=== PATIENT | male | born 1940 | race Caucasian/White ===

== ENCOUNTER 2020-07-11 11:33 | Inpatient (IN) | payer MEDICARE, OTHER ==
[~2020-07-11] VITALS: Ht 167.6 cm; Wt 81.6 kg
--- NOTE | 2020-07-11 12:00 | NUR ---
GPS/ADDICTION PROFESSIONAL NOTES ADMITTED A 80 YEARS OLD MALE PATIENT FROM [facility]. PATIENT ON 5150 HOLD FOR DTS. UPON FACE TO FACE INTERVIEW PATIENT A/O X4 VERBALIZED THAT HE IS DEPRESS WITH SUICIDAL THOUGHTS BUT NO PLAN AT THIS TIME. PATIENT CALM AND COOPERATIVE DURING THE ADMISSION PROCESS. DR. HULL ( PSYCHIATRIST)AND DR. ABDI (WHOLESALE LOAN PROCESSOR WILL RECONCILE PATIENT'S MEDICATIONS) MADE AWARE OF THE ADMISSION. DR. ABDI MADE AWARE OF THE INITIAL BS RESULTS OF 205 MG/DL AFTER PATIENT ATE HIS LUNCH AND DRINKS ORANGE JUICE AND STATED IT IS FINE WILL DO AIC TOMORROW. PATIENT WAS ORIENTED IN THE UNIT AND UNIT POLICIES. CONTRABAND AND FULL SKIN ASSESSMENT DONE. ADVISEMENT AND PATIENT' RIGHT BOOKLET WAS GIVEN TO THE PATIENT. PATIENT'S TINY WAS MADE AWARE OF THE ADMISSION.
[2020-07-11] MEDS ORDERED: MIRT45TA83 PO (12:13)
[2020-07-11] MEDS ORDERED: DOCU-141 PO (12:13)
[2020-07-11] MEDS ORDERED: ARIP15TA3 PO (12:13)
[2020-07-11] MEDS ORDERED: SENN-261 PO (12:13)
[2020-07-11] MEDS ORDERED: LISI-607 PO (12:13)
[2020-07-11] MEDS ORDERED: PANT20TA2 PO (12:13)
[2020-07-11] MEDS ORDERED: MULT-24 PO (12:13)
[2020-07-11] MEDS ORDERED: BUPR-51 PO (12:13)
[2020-07-11] MEDS ORDERED: OLAN10TA3 PO (12:13)
[2020-07-11] MEDS ORDERED: HYDR25TA4 PO (12:13)
[2020-07-11] MEDS ORDERED: MAG30ORA PO (12:13)
[2020-07-11] MEDS ORDERED: AMLO10TA4 PO (12:13)
[2020-07-11] MEDS ORDERED: VENL150T PO (12:13)
[2020-07-11] MEDS ORDERED: POLY17PO4 PO (12:13)
[2020-07-11] MEDS ORDERED: TAMS-12 PO (12:13)
[2020-07-11] MEDS ORDERED: CHOL100040 PO (12:13)
[2020-07-11] MEDS ORDERED: GABA-532 PO (12:13)
[2020-07-11] MEDS ORDERED: BLOOD SUGAR DIAGNOSTIC 1 EACH STRIP IN ONE (12:30)
[2020-07-11] MEDS ORDERED: MAG HYDROX/AL HYDROX/SIMETH 30 ML UDC PO PRN ×2 (12:30→21:00)
[2020-07-11] MEDS ORDERED: MAGNESIUM HYDROXIDE 30 ML UDC PO PRN (12:30)
[2020-07-11] MEDS ORDERED: ACETAMINOPHEN 325 MG TABLET PO PRN (12:30)
[2020-07-11] MEDS ORDERED: LORAZEPAM 0.5 MG TABLET PO PRN (12:30)
--- NOTE | 2020-07-11 13:41 | NUR ---
GPS/RN-NOTES PATIENT C/O INDIGESTION AND REQUESTING FO MEDICATIONS TO HELP. MAALOX 30ML GIVEN PRN ORDER. WILL CONT. MONITORING.
--- NOTE | 2020-07-11 14:00 | NUR ---
GPS/RN -NOTES PATIENT VERBALIZED MAALOX HELPS WITH THE HIS INDIGESTIONS.
[2020-07-11 16:00] VITALS: BP 137/61
[2020-07-11 20:15] VITALS: BP 154/87
[2020-07-11] MEDS ORDERED: GABAPENTIN 300 MG CAPSULE PO PRN (21:00)
[2020-07-12 07:47] LABS: ALBUMIN 3.1 g/dL (3.4-5.0); BILIRUBIN,TOTAL 0.3 mg/dL (0.2-1.0); CALCIUM, SERUM 8.6 mg/dL (8.5-10.1); POTASSIUM 3.2 mmol/L (3.5-5.1); TOTAL PROTEIN, SERUM 6.8 g/dL (6.4-8.2)
[2020-07-12 07:57] LABS: THYROID STIMULATING HORMONE 4.039 uIU/mL (0.358-3.74)
[2020-07-12 08:00] VITALS: BP 153/75
[2020-07-12] MEDS: PANTOPRAZOLE 40 MG TABLET.DR PO SCH (08:21)
[2020-07-12] MEDS: HYDROCHLOROTHIAZIDE 25 MG TABLET PO SCH (08:22)
[2020-07-12] MEDS: TAMSULOSIN 0.4 MG CAP.SR.24H PO SCH (08:22)
[2020-07-12] MEDS: CHOLECALCIFEROL 1,000 UNIT TABLET (VIT D3) PO SCH (08:22)
[2020-07-12] MEDS: MULTIVITAMINS,THERAGRAN 1 UDTAB TABLET PO SCH (08:22)
[2020-07-12] MEDS: DOCUSATE SODIUM 100 MG CAPSULE PO SCH ×2 (08:22→17:02)
[2020-07-12] MEDS: LISINOPRIL (5MG) 5 MG TABLET PO SCH (08:23)
[2020-07-12] MEDS: AMLODIPINE BESYLATE 10 MG TABLET PO SCH (08:23)
[2020-07-12] MEDS: POLYETHYLENE GLYCOL 3350 17 GM POWD.PACK PO PRN (08:38)
--- NOTE | 2020-07-12 09:00 | NUR ---
RN NOTE- PT CALM ORIENTED TO PERSON PLACE DENIES SI HI AH VH AT PRESENT MED COMPLIANT ISOLATIVE WITHDRAWN POOR EYE CONTACT DOESN'T INITIATE CONVERSATION. GUARDED
--- NOTE | 2020-07-12 09:11 | NUR ---
RN NOTE- PT REQUESTED MIRALAX FOR BM. TAKES DAILY. GIVEN. ALSO NOTED K IS 3.2. KEYLA LOCKE NOTIFIED AT THIS TIME
--- NOTE | 2020-07-12 09:30 | NUR ---
RN NOTE- K SUPPLEMENTATION STARTED PER KEYLA LOCKE
[2020-07-12] MEDS: POTASSIUM CHLORIDE 20 MEQ TAB.PRT.SR PO SCH ×2 (09:38→10:43)
--- NOTE | 2020-07-12 12:10 | NUR ---
Family Contact: SW called the pts , Leila ([phone]), and informed her that the SW would like to discuss the pts discharge planning. Pts stated that she would like the pt to return home and SW stated that they would need to figure out how to get his medications. She stated that she will figure it out.
[2020-07-12] MEDS: OLANZAPINE 2.5 MG TABLET PO SCH ×2 (13:51→17:02)
--- NOTE | 2020-07-12 14:33 | NUR ---
Psychiatrist Contact: CEDRIC called Dr. Phil Mercado located at [address], [place] [address]; and left a voicemail message stating that she would like to talk to the MD regarding the pt.
--- NOTE | 2020-07-12 14:48 | NUR ---
Initial Discharge Plan: Pt currently resides at his home with his located at [address] [id number]; ([phone]). Per pt, he would like to return to his home. SW will work with the pt and the MD regarding appropriate discharge planning. SW will form a safe and proper discharge.
[2020-07-12] MEDS ORDERED: DEXTROSE 50%-WATER 50 ML DISP.SYRIN IV PRN (15:30)
[2020-07-12] MEDS ORDERED: POTASSIUM CHLORIDE 20 MEQ TAB.PRT.SR PO ONE ×2 (15:30→18:30)
[2020-07-12 16:00] VITALS: BP 123/64
[2020-07-12] MEDS: BLOOD SUGAR DIAGNOSTIC 1 EACH STRIP IN SCH ×2 (17:35→21:31)
[2020-07-12] MEDS: INSULIN REGULAR, HUMAN 100 UNIT/ML 3 ML VIAL SQ PRN ×2 (17:43→21:33)
[2020-07-12 20:05] VITALS: BP 128/69
[2020-07-12] MEDS ORDERED: OLANZAPINE 2.5 MG TABLET PO SCH (22:00)
[2020-07-13 07:39] LABS: BASOPHILS % (AUTO) 0.4 % (0.0-2.0); EOSINOPHILS % (AUTO) 4.1 % (0.0-6.0); HEMATOCRIT 45 % (39-51); HEMOGLOBIN 14.7 g/dL (13.5-17.5); LYMPHOCYTES # (AUTO) 2.2 /CMM (0.8-4.8); LYMPHOCYTES % (AUTO) 25.5 % (20.0-44.0); MEAN CORPUSCULAR HGB CONC 33 g/dl (31.0-36.0); MEAN CORPUSCULAR VOLUME 92 fL (80-96); MONOCYTES # (AUTO) 0.8 /CMM (0.1-1.30); MONOCYTES % (AUTO) 9.2 % (2.0-12.0); NEUTROPHILS # (AUTO) 5.2 /CMM (1.8-8.9); NEUTROPHILS % (AUTO) 60.8 % (43.0-81.0); PLATELET COUNT (AUTO) 195 /CMM (150-450); RED BLOOD CELL COUNT(AUTO) 4.81 MIL/uL (4.5-6.0); WHITE BLOOD COUNT (AUTO) 8.5 K/uL (4.3-11.0)
[2020-07-13] MEDS: BLOOD SUGAR DIAGNOSTIC 1 EACH STRIP IN SCH ×4 (07:52→21:24)
[2020-07-13 08:00] VITALS: BP 130/66
[2020-07-13] MEDS: PANTOPRAZOLE 40 MG TABLET.DR PO SCH (08:07)
[2020-07-13] MEDS: SENNOSIDES 8.6 MG TABLET PO PRN (08:10)
[2020-07-13] MEDS: INSULIN REGULAR, HUMAN 100 UNIT/ML 3 ML VIAL SQ PRN ×4 (08:10→21:27)
[2020-07-13] MEDS: MULTIVITAMINS,THERAGRAN 1 UDTAB TABLET PO SCH (08:10)
[2020-07-13] MEDS: CHOLECALCIFEROL 1,000 UNIT TABLET (VIT D3) PO SCH (08:11)
[2020-07-13] MEDS: DOCUSATE SODIUM 100 MG CAPSULE PO SCH ×2 (08:11→16:34)
[2020-07-13] MEDS: OLANZAPINE 2.5 MG TABLET PO SCH ×2 (08:11→12:35)
[2020-07-13] MEDS: HYDROCHLOROTHIAZIDE 25 MG TABLET PO SCH (08:12)
[2020-07-13] MEDS: LISINOPRIL (5MG) 5 MG TABLET PO SCH (08:13)
[2020-07-13] MEDS: TAMSULOSIN 0.4 MG CAP.SR.24H PO SCH (08:15)
[2020-07-13] MEDS: AMLODIPINE BESYLATE 10 MG TABLET PO SCH (08:16)
[2020-07-13 08:25] LABS: CALCIUM, SERUM 8.7 mg/dL (8.5-10.1); CREATININE 0.8 mg/dL (0.6-1.3); MAGNESIUM 2.3 mg/dL (1.8-2.4); PHOSPHORUS 3.1 mg/dL (2.5-4.9)
[2020-07-13 16:00] VITALS: BP 92/65
[2020-07-13] MEDS: ARIPIPRAZOLE 5 MG TABLET PO SCH (16:34)
[2020-07-13 20:00] VITALS: BP 117/53
[2020-07-14 08:00] VITALS: BP 151/88
[2020-07-14] MEDS: BLOOD SUGAR DIAGNOSTIC 1 EACH STRIP IN SCH ×4 (08:01→21:11)
[2020-07-14] MEDS: INSULIN REGULAR, HUMAN 100 UNIT/ML 3 ML VIAL SQ PRN ×4 (08:02→21:14)
[2020-07-14] MEDS: ARIPIPRAZOLE 5 MG TABLET PO SCH ×3 (08:02→17:04)
[2020-07-14] MEDS: DOCUSATE SODIUM 100 MG CAPSULE PO SCH ×2 (08:02→17:04)
[2020-07-14] MEDS: MULTIVITAMINS,THERAGRAN 1 UDTAB TABLET PO SCH (08:03)
[2020-07-14] MEDS: AMLODIPINE BESYLATE 10 MG TABLET PO SCH (08:03)
[2020-07-14] MEDS: CHOLECALCIFEROL 1,000 UNIT TABLET (VIT D3) PO SCH (08:03)
[2020-07-14] MEDS: SENNOSIDES 8.6 MG TABLET PO PRN (08:03)
[2020-07-14] MEDS: HYDROCHLOROTHIAZIDE 25 MG TABLET PO SCH (08:03)
[2020-07-14] MEDS: PANTOPRAZOLE 40 MG TABLET.DR PO SCH (08:03)
[2020-07-14] MEDS: LISINOPRIL (5MG) 5 MG TABLET PO SCH (08:04)
[2020-07-14] MEDS: DIVALPROEX SODIUM 125 MG CAP.SPRINK PO SCH ×3 (08:06→17:04)
[2020-07-14] MEDS: TAMSULOSIN 0.4 MG CAP.SR.24H PO SCH (08:06)
[2020-07-14 16:00] VITALS: BP 120/70
[2020-07-14] MEDS: METFORMIN 500 MG TABLET PO SCH (17:04)
[2020-07-14 19:39] VITALS: BP 139/70
[2020-07-14] MEDS: TEMAZEPAM 7.5 MG CAPSULE PO PRN (22:01)
--- NOTE | 2020-07-14 22:17 | NUR ---
GPS RN NOTES: INSOMNIA PT INALBLE TO SLEEP. PT REQUESTED SLEEPING MEDICATION. OFFERED RESTORIL 7.5 MG PO PRN ORDERED. PT AGREED AND TOLERATED MEDICATION WELL. CONTINUE TO MONITOR.
[2020-07-15] MEDS: BLOOD SUGAR DIAGNOSTIC 1 EACH STRIP IN SCH ×4 (06:58→21:07)
[2020-07-15] MEDS: INSULIN REGULAR, HUMAN 100 UNIT/ML 3 ML VIAL SQ PRN ×3 (07:00→21:09)
[2020-07-15 08:00] VITALS: BP 142/69
[2020-07-15] MEDS: TAMSULOSIN 0.4 MG CAP.SR.24H PO SCH (08:15)
[2020-07-15] MEDS: HYDROCHLOROTHIAZIDE 25 MG TABLET PO SCH (08:15)
[2020-07-15] MEDS: DIVALPROEX SODIUM 125 MG CAP.SPRINK PO SCH ×3 (08:15→16:18)
[2020-07-15] MEDS: ARIPIPRAZOLE 5 MG TABLET PO SCH ×3 (08:15→21:00)
[2020-07-15] MEDS: PANTOPRAZOLE 40 MG TABLET.DR PO SCH (08:16)
[2020-07-15] MEDS: METFORMIN 500 MG TABLET PO SCH ×2 (08:16→16:18)
[2020-07-15] MEDS: CHOLECALCIFEROL 1,000 UNIT TABLET (VIT D3) PO SCH (08:16)
[2020-07-15] MEDS: LISINOPRIL (5MG) 5 MG TABLET PO SCH (08:16)
[2020-07-15] MEDS: DOCUSATE SODIUM 100 MG CAPSULE PO SCH ×2 (08:16→16:18)
[2020-07-15] MEDS: AMLODIPINE BESYLATE 10 MG TABLET PO SCH (08:17)
[2020-07-15] MEDS: MULTIVITAMINS,THERAGRAN 1 UDTAB TABLET PO SCH (08:22)
--- NOTE | 2020-07-15 09:00 | NUR ---
RN NOTE-PT QUIET WITHDRAWN ORIENTED TO PERSON PLACE TIME PURPOSE DENIES ALL MED COMPLIANT PO INTAKE GOOD DEPRESSED
--- NOTE | 2020-07-15 14:33 | NUR ---
SW Discharge Plan: This copywriter spoke with Libby from [facility] ([phone]) and sent clinicals. Libby, stated that they will accept pt.
--- NOTE | 2020-07-15 14:34 | NUR ---
SW Family Contact: This technical proposal writer spoke with patient's Leila ([phone]) who is aware of pt's discharge to [facility] once pt is stable. She is agreeable with this plan.
[2020-07-15 16:00] VITALS: BP 142/84
[2020-07-15] MEDS: POLYETHYLENE GLYCOL 3350 17 GM POWD.PACK PO PRN (16:18)
--- NOTE | 2020-07-15 17:28 | NUR ---
GPS RN NOTES PATIENT'S 1730 ACCU-CHECK WITH BS OF 124. PER SLIDING SCALE NO COVERAGE NEEDED.
--- NOTE | 2020-07-15 19:35 | NUR ---
GPS RN NOTES PATIENT IN THE ROOM, AWAKE, EATING A SNACK. PATIENT IS CALM AT THIS TIME; NO S/S OF DISTRESS NOTED. WILL CONTINUE TO MONITOR FOR SAFETY BEHAVIOR.
[2020-07-15 19:48] VITALS: BP 111/70
[2020-07-16] MEDS: TEMAZEPAM 7.5 MG CAPSULE PO PRN (02:02)
--- NOTE | 2020-07-16 02:03 | NUR ---
GPS RN NOTES: INSOMNIA UPON DOING ROUNDS, PT AWAKE. PT STATED HE CAN NOT SLEEP AND REQUEST SLEEPING MEDICATION. OFFERED RESTORIL 7.5MG PO PRN ORDERED. PT AGREED AND TOLERATED MEDICATION WELL. CONTINUE TO MONITOR
[2020-07-16] MEDS: BLOOD SUGAR DIAGNOSTIC 1 EACH STRIP IN SCH ×4 (07:38→21:28)
[2020-07-16] MEDS: INSULIN REGULAR, HUMAN 100 UNIT/ML 3 ML VIAL SQ PRN ×3 (07:41→17:27)
[2020-07-16 08:00] VITALS: BP 121/57
[2020-07-16] MEDS: DOCUSATE SODIUM 100 MG CAPSULE PO SCH ×2 (08:22→17:30)
[2020-07-16] MEDS: CHOLECALCIFEROL 1,000 UNIT TABLET (VIT D3) PO SCH (08:22)
[2020-07-16] MEDS: METFORMIN 500 MG TABLET PO SCH ×2 (08:22→17:30)
[2020-07-16] MEDS: ARIPIPRAZOLE 5 MG TABLET PO SCH ×3 (08:22→21:26)
[2020-07-16] MEDS: TAMSULOSIN 0.4 MG CAP.SR.24H PO SCH (08:22)
[2020-07-16] MEDS: DIVALPROEX SODIUM 125 MG CAP.SPRINK PO SCH ×3 (08:22→17:30)
[2020-07-16] MEDS: HYDROCHLOROTHIAZIDE 25 MG TABLET PO SCH (08:23)
[2020-07-16] MEDS: LISINOPRIL (5MG) 5 MG TABLET PO SCH (08:23)
[2020-07-16] MEDS: PANTOPRAZOLE 40 MG TABLET.DR PO SCH (08:23)
[2020-07-16] MEDS: AMLODIPINE BESYLATE 10 MG TABLET PO SCH (08:23)
[2020-07-16] MEDS: MULTIVITAMINS,THERAGRAN 1 UDTAB TABLET PO SCH (08:27)
[2020-07-16] MEDS ORDERED: TIOT18CA3 IH (09:15)
[2020-07-16] MEDS ORDERED: TIOTROPIUM BROMIDE 6 CAP/BOX CAP.W.DEV IH SCH (10:30)
[2020-07-16] MEDS: IPRATROPIUM NEB FS 0.5 MG/2.5 ML AMPUL.NEB NEB SCH ×2 (10:45→19:57)
[2020-07-16] MEDS ORDERED: IPRATROPIUM NEB FS 0.5 MG/2.5 ML AMPUL.NEB ONE (10:45)
[2020-07-16 16:00] VITALS: BP 156/78
[2020-07-16 19:53] VITALS: BP 141/76
[2020-07-17] MEDS: IPRATROPIUM NEB FS 0.5 MG/2.5 ML AMPUL.NEB NEB SCH ×6 (01:30→20:32)
[2020-07-17] MEDS: TEMAZEPAM 7.5 MG CAPSULE PO PRN (04:02)
--- NOTE | 2020-07-17 04:04 | NUR ---
GPS RN NOTE: INSOMNIA PT COMPLAINED OF INSOMNIA AND REQUESTED SLEEPING PILL, ADMIN RESTORIL @ 0402, WILL REASSESS AND CONTINUE TO MONITOR Q15MIN FOR SAFETY AND BEHAVIOR.
[2020-07-17] MEDS: BLOOD SUGAR DIAGNOSTIC 1 EACH STRIP IN SCH ×4 (06:43→21:49)
[2020-07-17] MEDS: INSULIN REGULAR, HUMAN 100 UNIT/ML 3 ML VIAL SQ PRN ×4 (06:45→21:51)
[2020-07-17 07:15] LABS: BASOPHILS % (AUTO) 0.2 % (0.0-2.0); EOSINOPHILS % (AUTO) 4.9 % (0.0-6.0); HEMATOCRIT 40 % (39-51); HEMOGLOBIN 13.6 g/dL (13.5-17.5); LYMPHOCYTES % (AUTO) 25.9 % (20.0-44.0); MEAN CORPUSCULAR HGB CONC 34 g/dl (31.0-36.0); MEAN CORPUSCULAR VOLUME 90 fL (80-96); MONOCYTES # (AUTO) 0.8 /CMM (0.1-1.30); MONOCYTES % (AUTO) 10.5 % (2.0-12.0); NEUTROPHILS # (AUTO) 4.5 /CMM (1.8-8.9); NEUTROPHILS % (AUTO) 58.5 % (43.0-81.0); PLATELET COUNT (AUTO) 205 /CMM (150-450); RED BLOOD CELL COUNT(AUTO) 4.48 MIL/uL (4.5-6.0); WHITE BLOOD COUNT (AUTO) 7.7 K/uL (4.3-11.0)
[2020-07-17 07:27] LABS: ALBUMIN 3.2 g/dL (3.4-5.0); BILIRUBIN,TOTAL 0.5 mg/dL (0.2-1.0); CALCIUM, SERUM 8.9 mg/dL (8.5-10.1); CREATININE 0.9 mg/dL (0.6-1.3); POTASSIUM 3.2 mmol/L (3.5-5.1); TOTAL PROTEIN, SERUM 6.9 g/dL (6.4-8.2)
[2020-07-17 08:00] VITALS: BP 142/79
--- NOTE | 2020-07-17 08:16 | NUR ---
PT REFUSED RESP TX ATT. NO S/S OF SOB NOTED ATT. HR 95 SPO2 96%. WILL CONT TO MONITOR Addendum: 07/17/20 at 0817 by BRADEN LOCK RT Amended: Links added.
[2020-07-17] MEDS: CHOLECALCIFEROL 1,000 UNIT TABLET (VIT D3) PO SCH (08:50)
[2020-07-17] MEDS: DIVALPROEX SODIUM 125 MG CAP.SPRINK PO SCH ×2 (08:50→12:06)
[2020-07-17] MEDS: DOCUSATE SODIUM 100 MG CAPSULE PO SCH ×2 (08:51→17:04)
[2020-07-17] MEDS: PANTOPRAZOLE 40 MG TABLET.DR PO SCH (08:51)
[2020-07-17] MEDS: MULTIVITAMINS,THERAGRAN 1 UDTAB TABLET PO SCH (08:51)
[2020-07-17] MEDS: METFORMIN 500 MG TABLET PO SCH ×2 (08:51→17:04)
[2020-07-17] MEDS: ARIPIPRAZOLE 5 MG TABLET PO SCH ×4 (08:51→21:40)
[2020-07-17] MEDS: TAMSULOSIN 0.4 MG CAP.SR.24H PO SCH (08:51)
[2020-07-17] MEDS: AMLODIPINE BESYLATE 10 MG TABLET PO SCH (08:52)
[2020-07-17] MEDS: HYDROCHLOROTHIAZIDE 25 MG TABLET PO SCH (08:52)
[2020-07-17] MEDS: LISINOPRIL (5MG) 5 MG TABLET PO SCH (08:52)
[2020-07-17] MEDS ORDERED: POTASSIUM CHLORIDE 20 MEQ TAB.PRT.SR PO ONE (13:30)
--- NOTE | 2020-07-17 13:44 | NUR ---
PROBABLE CAUSE HEARING: Patient had probable cause hearing today which was upheld for grave disability.
[2020-07-17 16:00] VITALS: BP 109/77
[2020-07-17 20:03] VITALS: BP 151/59
[2020-07-17] MEDS ORDERED: TEMAZEPAM 7.5 MG CAPSULE PO PRN (22:00)
[2020-07-18] MEDS: IPRATROPIUM NEB FS 0.5 MG/2.5 ML AMPUL.NEB NEB SCH ×4 (02:13→20:02)
[2020-07-18] MEDS: BLOOD SUGAR DIAGNOSTIC 1 EACH STRIP IN SCH ×4 (07:46→21:25)
[2020-07-18 08:00] VITALS: BP 154/74
[2020-07-18] MEDS: DIVALPROEX SODIUM 125 MG CAP.SPRINK PO SCH ×2 (08:24→12:05)
[2020-07-18] MEDS: CHOLECALCIFEROL 1,000 UNIT TABLET (VIT D3) PO SCH (08:24)
[2020-07-18] MEDS: DOCUSATE SODIUM 100 MG CAPSULE PO SCH ×2 (08:24→16:05)
[2020-07-18] MEDS: MULTIVITAMINS,THERAGRAN 1 UDTAB TABLET PO SCH (08:24)
[2020-07-18] MEDS: ARIPIPRAZOLE 5 MG TABLET PO SCH ×4 (08:24→21:11)
[2020-07-18] MEDS: METFORMIN 500 MG TABLET PO SCH ×2 (08:24→16:05)
[2020-07-18] MEDS: TAMSULOSIN 0.4 MG CAP.SR.24H PO SCH (08:24)
[2020-07-18] MEDS: AMLODIPINE BESYLATE 10 MG TABLET PO SCH (08:25)
[2020-07-18] MEDS: HYDROCHLOROTHIAZIDE 25 MG TABLET PO SCH (08:25)
[2020-07-18] MEDS: LISINOPRIL (5MG) 5 MG TABLET PO SCH (08:25)
[2020-07-18] MEDS: PANTOPRAZOLE 40 MG TABLET.DR PO SCH (08:25)
[2020-07-18] MEDS: INSULIN REGULAR, HUMAN 100 UNIT/ML 3 ML VIAL SQ PRN ×4 (09:00→21:12)
[2020-07-18 12:35] LABS: APPEARANCE,URINE SL CLOUDY (CLEAR); BILIRUBIN,URINE NEGATIVE (NEGATIVE); BLOOD, URINE NEGATIVE Ery/uL (NEGATIVE); COLOR,URINE YELLOW (YELLOW); KETONES,URINE TRACE (NEGATIVE); LEUKOCYTE ESTERASE ,URINE TRACE (NEGATIVE); NITRITE, URINE NEGATIVE (NEGATIVE); PH,URINE 6.5 (5.0-8.0); PROTEIN,URINE NEGATIVE (NEGATIVE); UGLUCOSE NEGATIVE (NEGATIVE); UROBILINOGEN,URINE 0.2 EU/dL (0.2)
[2020-07-18 13:01] LABS: BACTERIA,URINE Rare /HPF (None Seen); RBC,URINE 0-2 /HPF (0-2); SQUAMOUS EPITHELIAL CELL,UR Few /HPF (None Seen)
[2020-07-18 16:00] VITALS: BP 105/62
[2020-07-18 20:00] VITALS: BP 131/65
[2020-07-18 20:01] VITALS: BP 131/65
[2020-07-19] MEDS: IPRATROPIUM NEB FS 0.5 MG/2.5 ML AMPUL.NEB NEB SCH ×4 (01:49→19:58)
[2020-07-19] MEDS: BLOOD SUGAR DIAGNOSTIC 1 EACH STRIP IN SCH ×4 (07:43→21:10)
[2020-07-19 08:00] VITALS: BP 136/72
[2020-07-19] MEDS: INSULIN REGULAR, HUMAN 100 UNIT/ML 3 ML VIAL SQ PRN ×3 (08:07→21:19)
[2020-07-19] MEDS: TAMSULOSIN 0.4 MG CAP.SR.24H PO SCH (08:32)
[2020-07-19] MEDS: ARIPIPRAZOLE 5 MG TABLET PO SCH ×4 (08:32→20:17)
[2020-07-19] MEDS: LISINOPRIL (5MG) 5 MG TABLET PO SCH (08:33)
[2020-07-19] MEDS: METFORMIN 500 MG TABLET PO SCH ×2 (08:33→16:56)
[2020-07-19] MEDS: CHOLECALCIFEROL 1,000 UNIT TABLET (VIT D3) PO SCH (08:33)
[2020-07-19] MEDS: DIVALPROEX SODIUM 125 MG CAP.SPRINK PO SCH ×2 (08:33→13:06)
[2020-07-19] MEDS: HYDROCHLOROTHIAZIDE 25 MG TABLET PO SCH (08:33)
[2020-07-19] MEDS: DOCUSATE SODIUM 100 MG CAPSULE PO SCH ×2 (08:33→16:56)
[2020-07-19] MEDS: MULTIVITAMINS,THERAGRAN 1 UDTAB TABLET PO SCH (08:33)
[2020-07-19] MEDS: PANTOPRAZOLE 40 MG TABLET.DR PO SCH (08:33)
[2020-07-19] MEDS: AMLODIPINE BESYLATE 10 MG TABLET PO SCH (08:35)
--- NOTE | 2020-07-19 12:00 | NUR ---
gps plastic shaper: notes covid antigen collected for placement and sent to lab, pt verbalized understanding.
--- NOTE | 2020-07-19 13:11 | NUR ---
SW Family Contact: This lead technical writer spoke with patient's Leila ([phone]) and informed that pt will be discharged Friday 07/20. She is aware and agreeable
--- NOTE | 2020-07-19 13:12 | NUR ---
SW Wednesday Discharge Note (Early Entry): Patient will be discharged to [facility] [address] [place] [address] ([phone]) via ambulance at 11AM. Spoke with Libby, Admin Coordinator at the facility who states they are ready to accept the patient today. Patient is aware and agreeable with discharge plans. Patients Leila ([phone]) is aware and agreeable. Patient is alert and oriented x3, is unable to plan for self-care at this time, however, is willing to accept care at [facility]. Patient denies any suicidal or homicidal ideation. Patient will follow-up at the facility with Dr. Elder (psychiatrist) and (Customer Account Manager) Bailey Cherry. Patient presents with euthymic mood and congruent affect.
[2020-07-19 16:00] VITALS: BP 131/62
[2020-07-19 20:37] VITALS: BP 107/79
--- NOTE | 2020-07-19 23:00 | NUR ---
GPS RN NOTE, RECEIVED PATIENT AWAKE AND IN BED, NO S/S OR COMPLAINTS OF PAIN AT THIS TIME. PATIENT IS DISPLAYING NO S/S OF APPARENT DISTRESS AT THIS TIME. PATIENT BREATHING IS UNLABORED WITH EQUAL RISE AND FALL OF THE CHEST. PATIENT IS ALERT AND ORIENTED X 4 ON ROOM AIR WITH A SPO2 99%. PATIENT IS COMPLIANT WITH MEDICATIONS, DEPRESSED, ANXIOUS AT TIMES, ISOLATIVE, AND COOPERATIVE. PATIENT DENIES SUICIDAL AND HOMICIDAL IDEATIONS AT THIS TIME. PATIENT ASSISTED WITH TURNING AND REPOSITIONING Q2HR AND PRN FOR COMFORT AND CIRCULATION. PATIENT HAS NO NEEDS AT THIS TIME. PATIENT EDUCATED ON THE USE OF THE CALL KIMBLE. PATIENT BED SIDE RAILS UP X 2 FOR SAFETY. PATIENT BED IS LOCKED, LOW, WITH BED ALARM ON. WILL CONTINUE TO MONITOR THIS PATIENT Q15 MINUTES WITH THE HELP OF STAFF TO MAINTAIN SAFETY.
[2020-07-20] MEDS: IPRATROPIUM NEB FS 0.5 MG/2.5 ML AMPUL.NEB NEB SCH ×2 (02:15→07:20)
--- NOTE | 2020-07-20 02:39 | NUR ---
GPS RN NOTE, PATIENT HAS A COMPLAINT OF NOT BEING ABLE TO SLEEP AND IS REQUESTING RESTORIL AT THIS TIME. PATIENT VITAL SIGNS ARE STABLE. GAVE RESTORIL 7.5 MG PO Q HS PRN ORDERED. WILL REASSESS FOR INSOMNIA AND I WILL CONTINUE TO MONITOR THIS PATIENT.
[2020-07-20] MEDS: BLOOD SUGAR DIAGNOSTIC 1 EACH STRIP IN SCH (07:33)
[2020-07-20] MEDS: INSULIN REGULAR, HUMAN 100 UNIT/ML 3 ML VIAL SQ PRN (07:35)
[2020-07-20] MEDS: ARIPIPRAZOLE 5 MG TABLET PO SCH (07:48)
[2020-07-20] MEDS: PANTOPRAZOLE 40 MG TABLET.DR PO SCH (07:48)
[2020-07-20] MEDS: DIVALPROEX SODIUM 125 MG CAP.SPRINK PO SCH (07:56)
[2020-07-20 08:00] VITALS: BP 150/97
[2020-07-20] MEDS: MULTIVITAMINS,THERAGRAN 1 UDTAB TABLET PO SCH (08:21)
[2020-07-20] MEDS: METFORMIN 500 MG TABLET PO SCH (08:21)
[2020-07-20] MEDS: DOCUSATE SODIUM 100 MG CAPSULE PO SCH (08:21)
[2020-07-20] MEDS: CHOLECALCIFEROL 1,000 UNIT TABLET (VIT D3) PO SCH (08:21)
[2020-07-20 08:22] VITALS: BP 150/97
[2020-07-20] MEDS: HYDROCHLOROTHIAZIDE 25 MG TABLET PO SCH (08:22)
[2020-07-20] MEDS: LISINOPRIL (5MG) 5 MG TABLET PO SCH (08:22)
[2020-07-20] MEDS: AMLODIPINE BESYLATE 10 MG TABLET PO SCH (08:22)
[2020-07-20] MEDS: TAMSULOSIN 0.4 MG CAP.SR.24H PO SCH (08:24)
--- NOTE | 2020-07-20 09:00 | NUR ---
RN NOTE- PT ALERT ORIENTED TO PERSON PLACE TIME AND PURPOSE MED COMPLIANT NEEDS ATTENDED ANTICIPATING DC TODAY. DENIES SI HI AH VH RESP RX TX DONE BY RT. CALM DIRECTABLE
--- NOTE | 2020-07-20 12:00 | NUR ---
RN NOTE- PT DC THIS TIME TO [facility] VIA AMBULANCE AND GURNEY. VS STABLE, COVID NEGATIVE OF 07/19. PT ALERT ORIENTED TO PERSON PLACE TIME AND PURPOSE. DENIES SI HI AH VH. REPORT CALLED TO CHAI BETH AT FACILITY. DC INSTRUCTIONS AND MEDS REVIEWED W PT. VERBALIZED UNDERSTANDING. VALUABLES RETURNED TO PT AND SIGNED FOR. NO PHOTOGRAPHS WERE NEEDED. SKIN INTACT. ID [id number] REMOVED. ESCORTED OFF UNIT W AMBULANCE STAFF.
== END 2020-07-20 12:00 | DRG 885 ==
LOC: GPS 11:33
PROVIDERS: ADMIT Psychiatry & Neurology Psychosomatic Medicine; ATTEND Student in an Organized Health Care Education/Training Program
DX: F25.0 Schizoaffective disorder, bipolar type (principal); E87.1 Hypo-osmolality and hyponatremia; R45.851 Suicidal ideations; E87.6 Hypokalemia; Z87.891 Personal history of nicotine dependence; E11.9 Type 2 diabetes mellitus without complications; F09 Unspecified mental disorder due to known physiological condition; G31.84 Mild cognitive impairment of uncertain or unknown etiology; I10 Essential (primary) hypertension; J44.9 Chronic obstructive pulmonary disease, unspecified; F41.9 Anxiety disorder, unspecified
CPT/HCPCS: 36415; 80048-TC; 80053-TC; 80061-TC; 80164-TC; 81000-TC; 82140-TC; 82962-TC; 83735-TC; 84100-TC; 84443-TC; 85025-TC; 87081-TC; 87086-TC; 94799-TC; J1815

== ENCOUNTER 2023-06-06 20:29 | Inpatient (IN) | payer MEDICARE, BC ==
[~2023-06-06] VITALS: Ht 167.6 cm; Wt 100.4 kg
[~2023-06-06 20:29] MED LIST: AMLO10TA4 PO; CHOL100040 PO; DOCU-141 PO; GABA-532 PO; HYDR25TA4 PO; LISI-768 PO; MAG30ORA PO; MULT-24 PO; PANT20TA2 PO; POLY17PO4 PO; SENN-261 PO; TAMS-12 PO; TIOT18CA3 IH
[2023-06-06 22:30] VITALS: BP 162/68; TEMP 98.7; O2SAT 98
[2023-06-06] MEDS ORDERED: ACETAMINOPHEN 325 MG TABLET PO PRN (22:30)
[2023-06-06] MEDS ORDERED: ZOLPIDEM TARTRATE 5 MG TABLET PO PRN (22:30)
[2023-06-06] MEDS ORDERED: MAG HYDROX/AL HYDROX/SIMETH 30 ML UDC PO PRN (22:30)
[2023-06-06] MEDS ORDERED: BLOOD SUGAR DIAGNOSTIC 1 EACH STRIP IN ONE (22:30)
[2023-06-06] MEDS ORDERED: MAGNESIUM HYDROXIDE 30 ML UDC PO PRN (22:30)
[2023-06-06 23:15] VITALS: BP 138/69; TEMP 98; O2SAT 97
[2023-06-07] MEDS ORDERED: AMLO-213 PO (00:21)
[2023-06-07] MEDS ORDERED: SULF1TAB47 PO (00:21)
[2023-06-07] MEDS ORDERED: METF-881 PO (00:21)
[2023-06-07] MEDS ORDERED: QUET50TA PO (00:21)
[2023-06-07] MEDS ORDERED: PANT40TA49 PO (00:21)
[2023-06-07] MEDS ORDERED: GABA-532 PO (00:21)
[2023-06-07 07:17] LABS: ALBUMIN 2.7 g/dL (3.4-5.0); BILIRUBIN,TOTAL 0.3 mg/dL (0.2-1.0); CALCIUM, SERUM 8.7 mg/dL (8.5-10.1); CREATININE 1.1 mg/dL (0.6-1.3); POTASSIUM 3.6 mmol/L (3.5-5.1); TOTAL PROTEIN, SERUM 6.2 g/dL (6.4-8.2)
[2023-06-07 07:20] LABS: CHOLESTEROL 137 mg/dL (<200); HDL CHOLESTEROL 31 mg/dL (40-60); LDL 78 mg/dL (0-99); TRIGLYCERIDES 176 mg/dL (30-150)
[2023-06-07 08:00] VITALS: BP 149/79; TEMP 99.3; O2SAT 97
[2023-06-07] MEDS ORDERED: VENL150C58 PO (08:27)
[2023-06-07] MEDS ORDERED: ALBU18HF2 IH (08:27)
[2023-06-07] MEDS ORDERED: QUET25TA PO (08:27)
[2023-06-07] MEDS ORDERED: BUPR150T10 PO (08:27)
[2023-06-07] MEDS: VENLAFAXINE XR 75 MG CAP.SR.24H PO SCH (12:16)
[2023-06-07] MEDS: LORAZEPAM 0.5 MG TABLET PO PRN (13:21)
[2023-06-07 16:00] VITALS: BP 128/59; TEMP 98.5; O2SAT 96
[2023-06-07] MEDS: ARIPIPRAZOLE 2 MG TABLET PO SCH (16:37)
[2023-06-07 20:26] VITALS: BP 147/76; TEMP 98.7; O2SAT 97
[2023-06-07] MEDS ORDERED: ALBUTEROL FS 2.5 MG/0.5 ML VIAL.NEB IH PRN (21:00)
[2023-06-07] MEDS: AMLODIPINE BESYLATE 10 MG TABLET PO SCH (21:29)
[2023-06-07] MEDS: SULFAMETH/TRIMETH 800/160 MG 1 UDTAB TABLET PO SCH (21:29)
[2023-06-07] MEDS: GABAPENTIN 100 MG CAPSULE PO SCH (21:29)
[2023-06-07] MEDS: METFORMIN 500 MG TABLET PO SCH (21:30)
[2023-06-07] MEDS: TRAZODONE 50 MG TABLET PO SCH (21:32)
[2023-06-07] MEDS: BLOOD SUGAR DIAGNOSTIC 1 EACH STRIP IN SCH (21:39)
[2023-06-08] MEDS: BLOOD SUGAR DIAGNOSTIC 1 EACH STRIP IN SCH ×4 (07:47→21:10)
[2023-06-08 08:00] VITALS: BP 135/77; TEMP 97.6; O2SAT 96
[2023-06-08] MEDS: ARIPIPRAZOLE 2 MG TABLET PO SCH ×2 (08:04→16:16)
[2023-06-08] MEDS: AMLODIPINE BESYLATE 10 MG TABLET PO SCH (08:04)
[2023-06-08] MEDS: METFORMIN 500 MG TABLET PO SCH ×2 (08:04→16:16)
[2023-06-08] MEDS: PANTOPRAZOLE 40 MG TABLET.DR PO SCH ×2 (08:04→16:16)
[2023-06-08] MEDS: SULFAMETH/TRIMETH 800/160 MG 1 UDTAB TABLET PO SCH ×2 (08:04→21:07)
[2023-06-08] MEDS: VENLAFAXINE XR 75 MG CAP.SR.24H PO SCH (08:04)
[2023-06-08] MEDS: GABAPENTIN 100 MG CAPSULE PO SCH (08:05)
[2023-06-08] MEDS: CLOTRIMAZOLE 1% 15 GM TUBE TP SCH ×2 (09:40→17:07)
[2023-06-08 16:00] VITALS: BP 137/72; TEMP 97.7; O2SAT 98
[2023-06-08 20:00] VITALS: BP 127/68; TEMP 98.3; O2SAT 96
[2023-06-08] MEDS: TRAZODONE 50 MG TABLET PO SCH (21:07)
[2023-06-09] MEDS: BLOOD SUGAR DIAGNOSTIC 1 EACH STRIP IN SCH ×4 (07:25→22:21)
[2023-06-09 08:00] VITALS: BP 126/57; TEMP 97.9; O2SAT 96
[2023-06-09] MEDS: AMLODIPINE BESYLATE 10 MG TABLET PO SCH (08:18)
[2023-06-09] MEDS: SULFAMETH/TRIMETH 800/160 MG 1 UDTAB TABLET PO SCH ×2 (08:18→21:35)
[2023-06-09] MEDS: GABAPENTIN 100 MG CAPSULE PO SCH (08:18)
[2023-06-09] MEDS: METFORMIN 500 MG TABLET PO SCH ×2 (08:18→17:08)
[2023-06-09] MEDS: PANTOPRAZOLE 40 MG TABLET.DR PO SCH ×2 (08:18→17:09)
[2023-06-09] MEDS: ARIPIPRAZOLE 2 MG TABLET PO SCH ×2 (08:18→17:09)
[2023-06-09] MEDS: CLOTRIMAZOLE 1% 15 GM TUBE TP SCH ×2 (08:19→17:09)
[2023-06-09] MEDS: VENLAFAXINE XR 75 MG CAP.SR.24H PO SCH (08:19)
[2023-06-09 16:00] VITALS: BP 125/68; TEMP 97.9; O2SAT 94
[2023-06-09 20:52] VITALS: BP 126/52; TEMP 98.2; O2SAT 95
[2023-06-09] MEDS: TRAZODONE 50 MG TABLET PO SCH (21:35)
[2023-06-10] MEDS: BLOOD SUGAR DIAGNOSTIC 1 EACH STRIP IN SCH ×4 (07:47→21:28)
[2023-06-10 08:00] VITALS: BP 126/83; TEMP 97.8; O2SAT 97
[2023-06-10] MEDS: VENLAFAXINE XR 75 MG CAP.SR.24H PO SCH (08:10)
[2023-06-10] MEDS: AMLODIPINE BESYLATE 10 MG TABLET PO SCH (08:10)
[2023-06-10] MEDS: SULFAMETH/TRIMETH 800/160 MG 1 UDTAB TABLET PO SCH ×2 (08:10→21:28)
[2023-06-10] MEDS: ARIPIPRAZOLE 2 MG TABLET PO SCH ×2 (08:10→16:50)
[2023-06-10] MEDS: GABAPENTIN 100 MG CAPSULE PO SCH (08:10)
[2023-06-10] MEDS: METFORMIN 500 MG TABLET PO SCH ×2 (08:10→16:49)
[2023-06-10] MEDS: PANTOPRAZOLE 40 MG TABLET.DR PO SCH ×2 (08:10→16:50)
[2023-06-10] MEDS: CLOTRIMAZOLE 1% 15 GM TUBE TP SCH ×2 (08:11→16:50)
[2023-06-10 16:00] VITALS: BP 154/76; TEMP 98; O2SAT 98
[2023-06-10 20:00] VITALS: BP 118/44; TEMP 97.4; O2SAT 97
[2023-06-10] MEDS: TRAZODONE 50 MG TABLET PO SCH (21:28)
[2023-06-11 08:00] VITALS: BP 136/59; TEMP 98.2; O2SAT 96
[2023-06-11] MEDS: BLOOD SUGAR DIAGNOSTIC 1 EACH STRIP IN SCH ×4 (08:04→21:33)
[2023-06-11] MEDS: PANTOPRAZOLE 40 MG TABLET.DR PO SCH ×2 (08:19→17:17)
[2023-06-11] MEDS: ARIPIPRAZOLE 2 MG TABLET PO SCH ×2 (08:19→17:17)
[2023-06-11] MEDS: GABAPENTIN 100 MG CAPSULE PO SCH (08:19)
[2023-06-11] MEDS: SULFAMETH/TRIMETH 800/160 MG 1 UDTAB TABLET PO SCH ×2 (08:19→21:29)
[2023-06-11] MEDS: VENLAFAXINE XR 75 MG CAP.SR.24H PO SCH (08:19)
[2023-06-11] MEDS: METFORMIN 500 MG TABLET PO SCH ×2 (08:20→17:16)
[2023-06-11] MEDS: CLOTRIMAZOLE 1% 15 GM TUBE TP SCH ×2 (08:20→17:17)
[2023-06-11] MEDS: AMLODIPINE BESYLATE 10 MG TABLET PO SCH (08:20)
[2023-06-11] MEDS: LORAZEPAM 0.5 MG TABLET PO PRN (14:41)
[2023-06-11 15:45] VITALS: BP 105/56; TEMP 98.2; O2SAT 97
[2023-06-11 16:00] VITALS: BP 105/56; TEMP 98.2; O2SAT 97
[2023-06-11] MEDS: GLUCERNA SHAKE 237 ML CAN PO SCH (17:18)
[2023-06-11 20:53] VITALS: BP 132/61; TEMP 97.6; O2SAT 97
[2023-06-11] MEDS: TRAZODONE 50 MG TABLET PO SCH (21:29)
[2023-06-12 08:00] VITALS: BP 137/63; TEMP 98.2; O2SAT 97
[2023-06-12] MEDS: SULFAMETH/TRIMETH 800/160 MG 1 UDTAB TABLET PO SCH (08:44)
[2023-06-12] MEDS: VENLAFAXINE XR 75 MG CAP.SR.24H PO SCH (08:44)
[2023-06-12] MEDS: BLOOD SUGAR DIAGNOSTIC 1 EACH STRIP IN SCH ×4 (08:44→21:29)
[2023-06-12] MEDS: METFORMIN 500 MG TABLET PO SCH ×2 (08:45→17:04)
[2023-06-12] MEDS: ARIPIPRAZOLE 2 MG TABLET PO SCH ×2 (08:45→17:04)
[2023-06-12] MEDS: GABAPENTIN 100 MG CAPSULE PO SCH (08:45)
[2023-06-12] MEDS: PANTOPRAZOLE 40 MG TABLET.DR PO SCH ×2 (08:45→16:46)
[2023-06-12] MEDS: AMLODIPINE BESYLATE 10 MG TABLET PO SCH (08:46)
[2023-06-12] MEDS: GLUCERNA SHAKE 237 ML CAN PO SCH ×2 (08:47→17:08)
[2023-06-12] MEDS: CLOTRIMAZOLE 1% 15 GM TUBE TP SCH ×2 (09:20→17:04)
[2023-06-12] MEDS: LORAZEPAM 0.5 MG TABLET PO PRN (14:23)
[2023-06-12 16:00] VITALS: BP 117/65; TEMP 98.3; O2SAT 97
[2023-06-12 20:00] VITALS: BP 125/68; TEMP 98.4; O2SAT 97
[2023-06-12] MEDS: TRAZODONE 50 MG TABLET PO SCH (21:29)
[2023-06-13 08:00] VITALS: BP 129/66; TEMP 97.8; O2SAT 98
[2023-06-13] MEDS: BLOOD SUGAR DIAGNOSTIC 1 EACH STRIP IN SCH ×4 (08:43→21:52)
[2023-06-13] MEDS: GLUCERNA SHAKE 237 ML CAN PO SCH ×2 (08:43→17:00)
[2023-06-13] MEDS: METFORMIN 500 MG TABLET PO SCH ×2 (09:04→16:58)
[2023-06-13] MEDS: PANTOPRAZOLE 40 MG TABLET.DR PO SCH ×2 (09:04→16:58)
[2023-06-13] MEDS: AMLODIPINE BESYLATE 10 MG TABLET PO SCH (09:05)
[2023-06-13] MEDS: VENLAFAXINE XR 75 MG CAP.SR.24H PO SCH (09:05)
[2023-06-13] MEDS: ARIPIPRAZOLE 2 MG TABLET PO SCH ×2 (09:05→16:58)
[2023-06-13] MEDS: GABAPENTIN 100 MG CAPSULE PO SCH (09:05)
[2023-06-13] MEDS: CLOTRIMAZOLE 1% 15 GM TUBE TP SCH ×2 (09:05→16:45)
[2023-06-13] MEDS: LORAZEPAM 0.5 MG TABLET PO PRN (10:59)
[2023-06-13 16:00] VITALS: BP 122/60; TEMP 97.8; O2SAT 96
[2023-06-13 20:00] VITALS: BP 140/61; TEMP 97.3; O2SAT 97
[2023-06-13] MEDS: TRAZODONE 50 MG TABLET PO SCH (21:53)
[2023-06-14] MEDS: PANTOPRAZOLE 40 MG TABLET.DR PO SCH ×2 (07:30→16:31)
[2023-06-14] MEDS: BLOOD SUGAR DIAGNOSTIC 1 EACH STRIP IN SCH ×3 (07:30→16:32)
[2023-06-14 08:00] VITALS: BP 139/71; TEMP 98.2; O2SAT 96
[2023-06-14] MEDS: GLUCERNA SHAKE 237 ML CAN PO SCH ×2 (08:47→17:27)
[2023-06-14] MEDS: GABAPENTIN 100 MG CAPSULE PO SCH (08:48)
[2023-06-14] MEDS: AMLODIPINE BESYLATE 10 MG TABLET PO SCH (08:48)
[2023-06-14] MEDS: ARIPIPRAZOLE 2 MG TABLET PO SCH ×2 (08:48→16:31)
[2023-06-14] MEDS: VENLAFAXINE XR 75 MG CAP.SR.24H PO SCH (08:48)
[2023-06-14] MEDS: METFORMIN 500 MG TABLET PO SCH ×2 (08:48→16:31)
[2023-06-14] MEDS: CLOTRIMAZOLE 1% 15 GM TUBE TP SCH ×2 (08:49→16:32)
[2023-06-14] MEDS: LORAZEPAM 0.5 MG TABLET PO PRN (13:47)
[2023-06-14 16:00] VITALS: BP 156/86; TEMP 98.1; O2SAT 98
[2023-06-14 20:32] VITALS: BP 139/67; TEMP 98; O2SAT 97
[2023-06-14] MEDS: TRAZODONE 50 MG TABLET PO SCH (21:31)
[2023-06-15 08:00] VITALS: BP 127/55; TEMP 98.6; O2SAT 97
[2023-06-15] MEDS: PANTOPRAZOLE 40 MG TABLET.DR PO SCH ×2 (08:11→16:30)
[2023-06-15] MEDS: VENLAFAXINE XR 75 MG CAP.SR.24H PO SCH (08:12)
[2023-06-15] MEDS: GLUCERNA SHAKE 237 ML CAN PO SCH ×2 (08:12→17:04)
[2023-06-15] MEDS: ARIPIPRAZOLE 2 MG TABLET PO SCH ×2 (08:12→16:30)
[2023-06-15] MEDS: METFORMIN 500 MG TABLET PO SCH ×2 (08:12→16:30)
[2023-06-15] MEDS: AMLODIPINE BESYLATE 10 MG TABLET PO SCH (08:12)
[2023-06-15] MEDS: GABAPENTIN 100 MG CAPSULE PO SCH (08:12)
[2023-06-15] MEDS: CLOTRIMAZOLE 1% 15 GM TUBE TP SCH ×2 (08:50→16:31)
[2023-06-15] MEDS: LORAZEPAM 0.5 MG TABLET PO PRN (12:14)
[2023-06-15 16:00] VITALS: BP 148/75; TEMP 98.6; O2SAT 97
[2023-06-15 20:58] VITALS: BP 117/64; TEMP 98; O2SAT 98
[2023-06-15] MEDS: TRAZODONE 50 MG TABLET PO SCH (21:09)
[2023-06-16 08:00] VITALS: BP 124/76; TEMP 98.1; O2SAT 97
[2023-06-16] MEDS: PANTOPRAZOLE 40 MG TABLET.DR PO SCH ×2 (08:22→17:26)
[2023-06-16] MEDS: GLUCERNA SHAKE 237 ML CAN PO SCH ×2 (08:23→17:27)
[2023-06-16] MEDS: ARIPIPRAZOLE 2 MG TABLET PO SCH ×2 (09:39→17:26)
[2023-06-16] MEDS: AMLODIPINE BESYLATE 10 MG TABLET PO SCH (09:40)
[2023-06-16] MEDS: METFORMIN 500 MG TABLET PO SCH ×2 (09:40→17:27)
[2023-06-16] MEDS: VENLAFAXINE XR 75 MG CAP.SR.24H PO SCH (09:41)
[2023-06-16] MEDS: GABAPENTIN 100 MG CAPSULE PO SCH (09:41)
[2023-06-16] MEDS: CLOTRIMAZOLE 1% 15 GM TUBE TP SCH ×2 (09:42→17:27)
[2023-06-16] MEDS: LORAZEPAM 0.5 MG TABLET PO PRN (12:14)
[2023-06-16 20:02] VITALS: BP 107/61; TEMP 97.6; O2SAT 96
[2023-06-16] MEDS: TRAZODONE 50 MG TABLET PO SCH (21:08)
[2023-06-17 08:00] VITALS: BP 126/64; TEMP 97.7; O2SAT 94
[2023-06-17 08:17] VITALS: BP 156/97
[2023-06-17] MEDS: ARIPIPRAZOLE 2 MG TABLET PO SCH (08:17)
[2023-06-17] MEDS: GABAPENTIN 100 MG CAPSULE PO SCH (08:17)
[2023-06-17] MEDS: AMLODIPINE BESYLATE 10 MG TABLET PO SCH (08:17)
[2023-06-17] MEDS: PANTOPRAZOLE 40 MG TABLET.DR PO SCH (08:17)
[2023-06-17] MEDS: METFORMIN 500 MG TABLET PO SCH (08:17)
[2023-06-17] MEDS: VENLAFAXINE XR 75 MG CAP.SR.24H PO SCH (08:17)
[2023-06-17] MEDS: CLOTRIMAZOLE 1% 15 GM TUBE TP SCH (08:18)
[2023-06-17] MEDS: GLUCERNA SHAKE 237 ML CAN PO SCH (09:59)
== END 2023-06-17 11:20 | disposition home or self-care (01) | DRG 885 ==
LOC: GPS 22:17
PROVIDERS: ADMIT Psychiatry & Neurology Psychiatry; ATTEND Internal Medicine
DX: F33.3 Major depressive disorder, recurrent, severe with psychotic symptoms (principal); E44.1 Mild protein-calorie malnutrition; F29 Unspecified psychosis not due to a substance or known physiological condition; F41.9 Anxiety disorder, unspecified; E11.9 Type 2 diabetes mellitus without complications; E66.9 Obesity, unspecified; E88.09 Other disorders of plasma-protein metabolism, not elsewhere classified; I10 Essential (primary) hypertension; Z87.891 Personal history of nicotine dependence; Z68.35 Body mass index [BMI] 35.0-35.9, adult; Z73.6 Limitation of activities due to disability; Z20.822 Contact with and (suspected) exposure to COVID-19; K29.00 Acute gastritis without bleeding; Z91.51 Personal history of suicidal behavior; F03.90 Unspecified dementia, unspecified severity, without behavioral disturbance, psychotic disturbance, mood disturbance, and anxiety
CPT/HCPCS: 36415; 80053-TC; 80061-TC; 82962-TC; 87081-TC

== ENCOUNTER 2024-07-23 18:38 | Inpatient (IN) | payer MEDICARE, BC ==
[~2024-07-23] VITALS: Ht 167.6 cm; Wt 99.8 kg
[~2024-07-23 18:38] MED LIST changes: +ALBU18HF2 IH; +AMLO-213 PO; -AMLO10TA4 PO; +BUPR150T10 PO; -CHOL100040 PO; -DOCU-141 PO; -HYDR25TA4 PO; -LISI-768 PO; -MAG30ORA PO; +METF-881 PO; -MULT-24 PO; -PANT20TA2 PO; +PANT40TA49 PO; -POLY17PO4 PO; +QUET25TA PO; +QUET50TA PO; -SENN-261 PO; +SULF1TAB47 PO; -TAMS-12 PO; -TIOT18CA3 IH; +VENL150C58 PO
[2024-07-23] MEDS ORDERED: ACETAMINOPHEN 325 MG TABLET PO PRN (19:00)
[2024-07-23] MEDS ORDERED: TEMAZEPAM 7.5 MG CAPSULE PO PRN (19:00)
[2024-07-23] MEDS ORDERED: LORAZEPAM 0.5 MG TABLET PO PRN (19:00)
[2024-07-23] MEDS ORDERED: ALBUTEROL FS 2.5 MG/3 ML VIAL.NEB NEB PRN (19:00)
[2024-07-23] MEDS ORDERED: MAG HYDROX/AL HYDROX/SIMETH 30 ML UDC PO PRN (19:00)
[2024-07-23 20:32] VITALS: BP 123/60; TEMP 97.9; O2SAT 96
[2024-07-23] MEDS: BLOOD SUGAR DIAGNOSTIC 1 EACH STRIP IN ONE (20:59)
[2024-07-23] MEDS ORDERED: DEXTROSE 50%-WATER 50 ML DISP.SYRIN IV PRN (21:00)
[2024-07-23] MEDS: BLOOD SUGAR DIAGNOSTIC 1 EACH STRIP IN SCH (22:00)
[2024-07-23] MEDS: INSULIN REGULAR, HUMAN 100 UNIT/ML 3 ML VIAL SQ PRN (22:11)
[2024-07-24 08:00] VITALS: BP 137/68; TEMP 97.7; O2SAT 97
[2024-07-24] MEDS: GABAPENTIN 100 MG CAPSULE PO SCH (09:11)
[2024-07-24] MEDS: AMLODIPINE BESYLATE 10 MG TABLET PO SCH (09:12)
[2024-07-24] MEDS: PANTOPRAZOLE 40 MG TABLET.DR PO SCH (09:26)
[2024-07-24 09:56] LABS: CHOLESTEROL 102 mg/dL (<200); HDL CHOLESTEROL 51 mg/dL (40-60); LDL 45 mg/dL (0-99); TRIGLYCERIDES 72 mg/dL (30-150)
[2024-07-24 10:00] LABS: ALANINE AMINOTRANSFERASE 33 U/L (12-78); ALBUMIN 2.7 g/dL (3.4-5.0); ALKALINE PHOSPHATASE 54 U/L (46-116); ASPARTATE AMINOTRANSFERASE 30 U/L (15-37); BILIRUBIN,TOTAL 0.6 mg/dL (0.2-1.0); CARBON DIOXIDE 28 mmol/L (21-32); CHLORIDE 106 mmol/L (98-107); CREATININE 1.1 mg/dL (0.6-1.3); GLUCOSE 150 mg/dL (74-106); SODIUM SERUM 140 mmol/L (136-145); TOTAL PROTEIN, SERUM 6.8 g/dL (6.4-8.2); UREA NITROGEN, BLOOD 24 mg/dL (7-18)
[2024-07-24] MEDS: METFORMIN XR 500 MG TAB.SR.24H PO SCH (11:28)
[2024-07-24] MEDS: ENOXAPARIN SODIUM 40 MG/0.4 ML DISP.SYRIN SQ SCH (11:42)
[2024-07-24 16:00] VITALS: BP 116/52; TEMP 98.4; O2SAT 99
[2024-07-24 20:36] VITALS: BP 121/63; TEMP 98; O2SAT 99
[2024-07-24] MEDS: OLANZAPINE 10 MG TABLET PO SCH (21:35)
[2024-07-25 08:00] VITALS: BP 145/64; TEMP 97.6; O2SAT 95
[2024-07-25] MEDS: BUPROPION XL 150 MG TAB.ER.24 PO SCH (08:20)
[2024-07-25] MEDS: MAGNESIUM HYDROXIDE 30 ML UDC PO PRN (09:00)
[2024-07-25 16:00] VITALS: BP 112/59; TEMP 98.4; O2SAT 98
[2024-07-25 20:25] VITALS: BP 119/53; TEMP 98.4; O2SAT 99
[2024-07-25] MEDS: TEMAZEPAM 7.5 MG CAPSULE PO PRN (21:45)
[2024-07-25] MEDS: LORAZEPAM 0.5 MG TABLET PO PRN (23:37)
[2024-07-26 08:00] VITALS: BP 122/83; TEMP 97.8; O2SAT 98
[2024-07-26 16:21] VITALS: BP 120/82; TEMP 98; O2SAT 98
[2024-07-26] MEDS: OLANZAPINE 2.5 MG TABLET PO SCH (17:41)
[2024-07-26 20:00] VITALS: BP 136/83; TEMP 98.1; O2SAT 98
[2024-07-27 08:00] VITALS: BP 154/69; TEMP 97.7; O2SAT 97
[2024-07-27 16:00] VITALS: BP 123/71; TEMP 98.1; O2SAT 99
[2024-07-27] MEDS ORDERED: DIVALPROEX SODIUM 250 MG TABLET.DR PO SCH (19:00)
[2024-07-27 20:00] VITALS: BP 140/70; TEMP 97.7; O2SAT 95
[2024-07-28 07:09] LABS: BASOPHILS % (AUTO) 0.4 % (0.0-2.0); EOSINOPHILS # (AUTO) 0.3 K/uL (0.0-0.7); EOSINOPHILS % (AUTO) 3.6 % (0.0-6.0); HEMATOCRIT 41 % (39-51); HEMOGLOBIN 13.7 g/dL (13.5-17.5); LYMPHOCYTES # (AUTO) 1.6 K/uL (0.8-4.8); LYMPHOCYTES % (AUTO) 21.3 % (20.0-44.0); MEAN CORPUSCULAR HEMOGLOBIN 31 PG (26.0-33.0); MEAN CORPUSCULAR HGB CONC 34 g/dl (31.0-36.0); MEAN CORPUSCULAR VOLUME 91 fL (80-96); MONOCYTES # (AUTO) 1.1 K/uL (0.1-1.30); MONOCYTES % (AUTO) 14.9 % (2.0-12.0); NEUTROPHILS # (AUTO) 4.5 K/uL (1.8-8.9); NEUTROPHILS % (AUTO) 59.8 % (43.0-81.0); PLATELET COUNT (AUTO) 282 K/uL (150-450); RED BLOOD CELL COUNT(AUTO) 4.49 MIL/uL (4.5-6.0); RED CELL DISTRIBUTION WIDTH 14.7 % (11.5-15.0); WHITE BLOOD COUNT (AUTO) 7.5 K/uL (4.3-11.0)
[2024-07-28 08:00] VITALS: BP 145/74; TEMP 97.9; O2SAT 96
[2024-07-28 16:00] VITALS: BP 145/72; TEMP 97.8; O2SAT 98
[2024-07-28] MEDS: DIVALPROEX SODIUM 250 MG TABLET.DR PO SCH (16:48)
[2024-07-28 20:00] VITALS: BP 124/69; TEMP 97.9; O2SAT 97
[2024-07-28 22:00] VITALS: BP 124/69
[2024-07-29 08:29] VITALS: BP 147/78; TEMP 97.9; O2SAT 96
[2024-07-29 15:44] VITALS: BP 135/79; TEMP 97.9; O2SAT 100
[2024-07-29 20:31] VITALS: BP 122/67; TEMP 98; O2SAT 96
[2024-07-29 22:00] VITALS: BP 122/67
[2024-07-30 08:00] VITALS: BP 176/90; TEMP 97.8; O2SAT 94
[2024-07-30] MEDS: DOCUSATE SODIUM 100 MG CAPSULE PO SCH (10:04)
[2024-07-30] MEDS: buPROPion SR 100 MG TABLET.ER PO SCH (10:04)
[2024-07-30] MEDS: POLYETHYLENE GLYCOL 3350 17 GM POWD.PACK PO SCH (10:04)
[2024-07-30 16:00] VITALS: BP 139/64; TEMP 97.8; O2SAT 99
[2024-07-30 20:42] VITALS: BP 134/61; TEMP 97.9; O2SAT 97
[2024-07-31 08:00] VITALS: BP 146/70; TEMP 98.6; O2SAT 98
[2024-07-31 16:00] VITALS: BP 142/67; TEMP 98.6; O2SAT 97
[2024-07-31 21:06] VITALS: BP 142/65; TEMP 98.6; O2SAT 98
[2024-08-01 19:53] VITALS: BP 96/75; TEMP 98; O2SAT 97
[2024-08-02 08:00] VITALS: BP 156/69; TEMP 98; O2SAT 98
[2024-08-02 08:01] VITALS: BP 156/69
== END 2024-08-02 13:25 | DRG 885 ==
LOC: GPS 18:38
PROVIDERS: ADMIT Psychiatry & Neurology Psychosomatic Medicine; ATTEND Internal Medicine
DX: F25.0 Schizoaffective disorder, bipolar type (principal); E44.0 Moderate protein-calorie malnutrition; R45.851 Suicidal ideations; I10 Essential (primary) hypertension; F41.9 Anxiety disorder, unspecified; E11.40 Type 2 diabetes mellitus with diabetic neuropathy, unspecified; E88.09 Other disorders of plasma-protein metabolism, not elsewhere classified; Z86.73 Personal history of transient ischemic attack (TIA), and cerebral infarction without residual deficits; Z87.891 Personal history of nicotine dependence; Z20.822 Contact with and (suspected) exposure to COVID-19; M62.81 Muscle weakness (generalized); Z68.35 Body mass index [BMI] 35.0-35.9, adult; F32.A Depression, unspecified; Z79.84 Long term (current) use of oral hypoglycemic drugs
CPT/HCPCS: 36415; 80053-TC; 80061-TC; 82962-TC; 85025-TC; 97110-TC; 97116-TC; 97530-TC; J1650; J1815